=== PATIENT | male | born 1985 | race Caucasian/White ===

== ENCOUNTER 2022-08-28 16:50 | Emergency (ER) | payer BC ==
[2022-08-28] MEDS ORDERED: Diphtheria,Pertussis(Acell),Tetanus Vaccine 0.5 ML Syringe IM ONE (18:09)
[2022-08-28] MEDS ORDERED: Lidocaine 1% PF 2 ML SDV INJECT ONE (18:09)
[2022-08-28] MEDS ORDERED: Acetaminophen/oxyCODONE 325-5 MG Tab PO ONE (18:43)
== END 2022-08-28 19:12 | disposition home or self-care (01) ==
LOC: MW.ED 16:50
DX: S61.212A Laceration without foreign body of right middle finger without damage to nail, initial encounter (principal); Z79.899 Other long term (current) drug therapy; Z23 Encounter for immunization; W26.8XXA Contact with other sharp object(s), not elsewhere classified, initial encounter
CPT/HCPCS: 12001; 90471; 90715; 99282; A9270; J3490

== ENCOUNTER 2024-06-28 17:17 | Inpatient (IN) | payer BC ==
[2024-06-28] MEDS: Sodium Chloride 0.9% 1,000 ML IV ONE ×2 (18:07→19:50)
[2024-06-28] MEDS: Morphine 4 MG/ML Syringe IVPUSH ONE (18:19)
[2024-06-28] MEDS: Ondansetron 4 MG/2 ML SDV IVPUSH ONE (18:19)
[2024-06-28 18:28] LABS: HEMATOCRIT 42.5 % (42.0-52.0); HEMOGLOBIN 15.3 g/dL (14.0-18.0); MEAN CORPUSCULAR HEMOGLOBIN 30.5 pg (28.0-32.0); MEAN CORPUSCULAR VOLUME 84.7 fL (83.0-99.0); PLATELET COUNT,PLT 204 K/uL (150-400); RED BLOOD CELL COUNT 5.02 M/uL (4.52-5.90); WHITE BLOOD CELL COUNT,WBC 19.19 K/uL (3.9-11.3)
[2024-06-28 18:55] LABS: A/G RATIO 1.2 (0.9-1.6); ALBUMIN 3.9 g/dL (3.4-5.0); BILIRUBIN TOTAL 0.9 mg/dL (0.2-1.0); CALCIUM 9.6 mg/dL (8.5-10.1); CARBON DIOXIDE,CO2 26.2 mmol/L (21.0-32.0); CREATININE 1.2 mg/dL (0.8-1.3); EST CRCL DRUG DOSING (CG) 97.04 mL/min; PROTEIN TOTAL,TP 7.2 g/dL (6.4-8.2)
[2024-06-28 19:01] LABS: LYMPHOCYTES ABSOLUTE MAN 0.96 K/uL (1.00-4.80); LYMPHOCYTES PERCENT MAN 5 % (24-44); MONOCYTES ABSOLUTE MAN 2.11 K/uL (0.00-0.80); MONOCYTES PERCENT MAN 11 % (0-8); SEG NEUTROPHILS ABSOLUTE MAN 16.12 K/uL (1.80-7.70); SEG NEUTROPHILS PERCENT MAN 84 % (41-71)
[2024-06-28] MEDS: HYDROmorphone 1 MG/ML Syringe IVPUSH ONE (19:18)
[2024-06-28 19:33] LABS: APPEARANCE,URINE SLT CLOUDY; BILIRUBIN,URINE NEGATIVE (NEGATIVE); COLOR,URINE YELLOW; GLUCOSE,URINE NEGATIVE (NEGATIVE); KETONES,URINE NEGATIVE (NEGATIVE); LEUKOCYTE ESTERASE,URINE SMALL (NEGATIVE); NITRITE,URINE NEGATIVE (NEGATIVE); OCCULT BLOOD,URINE MODERATE (NEGATIVE); PROTEIN,URINE NEGATIVE (NEGATIVE); UROBILINOGEN,URINE 0.2 EU/dL (<2.0)
[2024-06-28 19:38] LABS: BACTERIA,URINE FEW (NEGATIVE); EPITHELIAL CELLS,URINE FEW (NONE-FEW); MUCUS,URINE LIGHT (NONE-MOD); WBC,URINE 15-20 (0-5/HPF)
[2024-06-28] MEDS: Iopamidol 755 MG/ML 500 ML Multipack Bottle IVPUSH ONE (19:42)
[2024-06-28 20:30] LABS: LACTIC ACID 0.6 mmol/L (0.4-2.0)
[2024-06-28] MEDS: cefTRIAXone 1 GM in Sodium Chloride 0.9% 50 ML IV ONE (21:39)
[2024-06-28] MEDS: HYDROmorphone 2 MG/ML Syringe IVPUSH ONE (22:02)
[2024-06-29] MEDS ORDERED: Ondansetron 4 MG/2 ML SDV IVPUSH PRN (00:13)
[2024-06-29] MEDS: HYDROmorphone 0.5 MG/0.5 ML Syringe IVPUSH PRN (03:36)
[2024-06-29] MEDS: Sodium Chloride 0.9% 1,000 ML IV SCH (03:40)
[2024-06-29 05:40] LABS: HEMATOCRIT 36.7 % (42.0-52.0); MEAN CORPUSCULAR HEMOGLOBIN 30.4 pg (28.0-32.0); MEAN CORPUSCULAR HGB CONC 35.4 g/dL (32.0-36.0); MEAN CORPUSCULAR VOLUME 85.9 fL (83.0-99.0); MEAN PLATELET VOLUME 8.9 fL (9.4-12.4); PLATELET COUNT,PLT 171 K/uL (150-400); RED BLOOD CELL COUNT 4.27 M/uL (4.52-5.90); WHITE BLOOD CELL COUNT,WBC 20.47 K/uL (3.9-11.3)
[2024-06-29 06:03] LABS: CALCIUM 8.4 mg/dL (8.5-10.1); CARBON DIOXIDE,CO2 27.2 mmol/L (21.0-32.0); EST CRCL DRUG DOSING (CG) 116.45 mL/min; POTASSIUM,K 3.9 mmol/L (3.5-5.1)
[2024-06-29 06:05] LABS: BAND ABSOLUTE MAN 1.84; BAND PERCENT MAN 9 %; LYMPHOCYTES ABSOLUTE MAN 2.25 K/uL (1.00-4.80); LYMPHOCYTES PERCENT MAN 11 % (24-44); MONOCYTES ABSOLUTE MAN 2.66 K/uL (0.00-0.80); MONOCYTES PERCENT MAN 13 % (0-8); SEG NEUTROPHILS ABSOLUTE MAN 13.71 K/uL (1.80-7.70); SEG NEUTROPHILS PERCENT MAN 67 % (41-71)
[2024-06-29] MEDS ORDERED: Sodium Chloride 0.9% 10 ML Syringe FLUSH PRN (08:31)
[2024-06-29] MEDS ORDERED: Sodium Chloride 0.9% 2.5 ML Syringe FLUSH PRN (08:31)
[2024-06-29] MEDS: Polyethylene Glycol 3350 Powder 17 GM Packet PO SCH (09:10)
[2024-06-29] MEDS: Sennosides/Docusate Sodium 50-8.6 MG Tab PO ONE (09:10)
[2024-06-29] MEDS: cefTRIAXone 2 GM in Sodium Chloride 0.9% 50 ML IV SCH (21:35)
[2024-06-30 05:35] LABS: BASOPHILS ABSOLUTE AUTO 0.03 K/uL (0.00-0.20); BASOPHILS PERCENT AUTO 0.2 % (0.0-1.0); EOSINOPHILS ABSOLUTE AUTO 0.04 K/uL (0.00-0.45); EOSINOPHILS PERCENT AUTO 0.3 % (0.0-6.0); HEMATOCRIT 36.4 % (42.0-52.0); HEMOGLOBIN 12.7 g/dL (14.0-18.0); IMMATURE GRAN ABSOLUTE AUTO 0.04 K/uL (0.00-0.05); IMMATURE GRAN PERCENT AUTO 0.3 % (0.0-0.4); LYMPHOCYTES ABSOLUTE AUTO 1.91 K/uL (1.00-4.80); LYMPHOCYTES PERCENT AUTO 14.9 % (24.0-44.0); MEAN CORPUSCULAR HEMOGLOBIN 30.4 pg (28.0-32.0); MEAN CORPUSCULAR HGB CONC 34.9 g/dL (32.0-36.0); MEAN CORPUSCULAR VOLUME 87.1 fL (83.0-99.0); MEAN PLATELET VOLUME 8.8 fL (9.4-12.4); MONOCYTES ABSOLUTE AUTO 1.31 K/uL (0.00-0.80); MONOCYTES PERCENT AUTO 10.2 % (0.0-8.0); NEUTROPHILS ABSOLUTE AUTO 9.49 K/uL (1.80-7.70); NEUTROPHILS PERCENT AUTO 74.1 % (41.0-71.0); PLATELET COUNT,PLT 155 K/uL (150-400); RED BLOOD CELL COUNT 4.18 M/uL (4.52-5.90); WHITE BLOOD CELL COUNT,WBC 12.82 K/uL (3.9-11.3)
[2024-06-30 05:53] LABS: CALCIUM 8.6 mg/dL (8.5-10.1); CARBON DIOXIDE,CO2 25.9 mmol/L (21.0-32.0); CREATININE 0.8 mg/dL (0.8-1.3); EST CRCL DRUG DOSING (CG) 145.56 mL/min; MAGNESIUM 2.1 mg/dL (1.8-2.4); POTASSIUM,K 4.2 mmol/L (3.5-5.1)
[2024-06-30] MEDS: Sennosides/Docusate Sodium 50-8.6 MG Tab PO PRN (10:04)
== END 2024-06-30 12:15 | disposition home or self-care (01) | DRG 501 ==
LOC: MW.ED 17:17 → MW.MS 21:01
PROVIDERS: ADMIT Internal Medicine; ATTEND Internal Medicine
DX: N41.0 Acute prostatitis (principal); N30.01 Acute cystitis with hematuria; N12 Tubulo-interstitial nephritis, not specified as acute or chronic; H54.7 Unspecified visual loss; K21.9 Gastro-esophageal reflux disease without esophagitis; F17.210 Nicotine dependence, cigarettes, uncomplicated; F15.90 Other stimulant use, unspecified, uncomplicated; F41.8 Other specified anxiety disorders; D72.829 Elevated white blood cell count, unspecified; K59.00 Constipation, unspecified; Z79.2 Long term (current) use of antibiotics; Z79.899 Other long term (current) drug therapy
CPT/HCPCS: 36415; 74177; 74177-26; 80048; 80053; 81001; 83605; 83735; 85025; 87040; 87086; 96361; 96374; 96375; 99284; 99285-25; A9270-GY; J0696; J1171; J2270; J2405; J3490; J7030; Q9967